=== PATIENT | female | born 1985 | race Caucasian/White ===

== ENCOUNTER → 2021-04-16 13:38 | Outpatient (CLI) | payer OTHER, SELFPAY ==
--- NOTE | 2021-04-16 13:47 | US_ITS ---
INDICATION: ABNORMAL WEIGHT GAIN EXAMINATION: US Pelvis Non OB Complete With Transvaginal Imaging TECHNIQUE: Transabdominal and transvaginal pelvic ultrasound was performed. Grayscale, spectral waveform, and color flow Doppler evaluation of the adnexa. COMPARISON: None. FINDINGS: UTERUS: Anteverted. The uterus measures 7.5 x 4.1 x 3.5 cm. There is no uterine mass. The endometrial stripe measures 2 in AP diameter which is within normal limits. Multiple calcifications seen within the lower uterine segment and cervix. RIGHT OVARY: Measures 4.2 x 1.6 x 2.1 cm. Non-enlarged, normal echogenicity. There are greater than 20 follicles present. There is normal arterial inflow and venous outflow present in the right ovary. LEFT OVARY: Measures 2.8 x 2.2 x 2.9 cm.. Non-enlarged, normal echogenicity. There is normal arterial inflow and venous outflow present in the left ovary. FREE FLUID: None. US/Pelvic (Non ) IMPRESSION: Polycystic ovarian syndrome. Electronically Signed: Pradip Chatterjee MD at 16:54 EDT Tel , Service support ,
--- NOTE | 2021-04-16 13:47 | US_ITS ---
INDICATION: ABNORMAL WEIGHT GAIN EXAMINATION: US Pelvis Non OB Complete With Transvaginal Imaging TECHNIQUE: Transabdominal and transvaginal pelvic ultrasound was performed. Grayscale, spectral waveform, and color flow Doppler evaluation of the adnexa. COMPARISON: None. FINDINGS: UTERUS: Anteverted. The uterus measures 7.5 x 4.1 x 3.5 cm. There is no uterine mass. The endometrial stripe measures 2 in AP diameter which is within normal limits. Multiple calcifications seen within the lower uterine segment and cervix. RIGHT OVARY: Measures 4.2 x 1.6 x 2.1 cm. Non-enlarged, normal echogenicity. There are greater than 20 follicles present. There is normal arterial inflow and venous outflow present in the right ovary. LEFT OVARY: Measures 2.8 x 2.2 x 2.9 cm.. Non-enlarged, normal echogenicity. There is normal arterial inflow and venous outflow present in the left ovary. FREE FLUID: None. US/Transvaginal Non- IMPRESSION: Polycystic ovarian syndrome. Electronically Signed: Pradip Chatterjee MD at 16:54 EDT Tel , Service support ,
== END ==
PROVIDERS: PCP Internal Medicine; Referring Provider Nurse Practitioner; Visit Provider Nurse Practitioner
DX: R63.5 Abnormal weight gain (principal); E28.2 Polycystic ovarian syndrome
CPT/HCPCS: 76830; 76856

== ENCOUNTER 2021-09-11 19:07 | Emergency (ER) | payer OTHER, SELFPAY ==
[2021-09-11 19:08] VITALS: BP 139/98; PULSE 140; RESP 18; TEMP 36.7; O2SAT 100; BMI 28.0
--- NOTE | 2021-09-11 19:40 | EKG12_ITS ---
Test Reason : CP Blood Pressure : / mmHG Vent. Rate : 091 BPM Atrial Rate : 091 BPM P-R Int : 136 ms QRS Dur : 080 ms QT Int : 352 ms P-R-T Axes : 071 056 036 degrees QTc Int : 432 ms Normal sinus rhythm Normal ECG Confirmed by ROS PA, RAJNI ([id number]), medical transcription editor RAZIA GUERRERO ([id number]) on 09/16/2021 6:52:00 AM Referred By: CHRISTIAN Confirmed By:RAJNI SOMMER MD
--- NOTE | 2021-09-11 19:41 | CT_ITS ---
STUDY: CT ABDOMEN AND PELVIS WITH CONTRAST REASON FOR EXAM: Female, 36 years old. Chest pain, back pain, abdominal pain -- TRAUMA ONLY: IV Contrast. RADIATION DOSAGE (If Supplied By Facility): CTDIvol = ( 11.66 ) mGy, DLP = ( 825.28 ) mGycm TECHNIQUE: Transaxial images were obtained from the dome of the diaphragm to the symphysis pubis without oral contrast. IV 100mL Isovue-370 was administered. Sagittal and coronal images were reconstructed. Individualized dose optimization techniques were used for this CT. COMPARISON: None. FINDINGS: The visualized lung bases are unremarkable. The visualized portions of the heart are within normal limits. Normal liver. Normal gallbladder and extrahepatic biliary system. Normal spleen. Normal pancreas. Normal bilateral adrenal glands. Normal right kidney. Normal left kidney. Normal visualized stomach. Normal small intestine. Normal colon. There is non-visualization of the appendix. Normal abdominal aorta. Normal inferior vena cava. Normal retroperitoneum. Normal urinary bladder. Normal visualized uterus. Normal abdominal wall. Normal osseous structures. CT/Abdomen/Pelvis WITH Contrast IMPRESSION: Normal enhanced CT of the abdomen and pelvis. Electronically Signed: Edilberto Godinez MD at 20:36 EDT Tel , Service support ,
--- NOTE | 2021-09-11 19:41 | CT_ITS ---
STUDY: CT CERVICAL SPINE WITHOUT CONTRAST REASON FOR EXAM: Female, 36 years old. Trauma. Fell off a horse. Neck pain. RADIATION DOSAGE (If Supplied By Facility): CTDIvol = ( 18.86 ) mGy, DLP = ( 396.76 ) mGycm TECHNIQUE: High resolution transaxial imaging was performed without contrast material. Sagittal and coronal images were reconstructed. Individualized dose optimization techniques were used for this CT. COMPARISON: None FINDINGS: Normal craniovertebral junction. Normal anterior atlantoaxial articulation. Normal odontoid process. Normal cervical lordosis. Normal vertebral bodies and posterior osseous elements. C2-3: Normal endplates. Normal disc height and morphology. Normal central canal and intervertebral neuroforamina. C3-4: Normal endplates. Normal disc height and morphology. Normal central canal and intervertebral neuroforamina. C4-5: Normal endplates. Normal disc height and morphology. Normal central canal and intervertebral neuroforamina. C5-6: Normal endplates. Normal disc height and morphology. Normal central canal and intervertebral neuroforamina. C6-7: Normal endplates. Normal disc height and morphology. Normal central canal and intervertebral neuroforamina. C7-T1: Normal endplates. Normal disc height and morphology. Normal central canal and intervertebral neuroforamina. Normal visualized soft tissue structures. CT/Spine Cervical without Contras IMPRESSION: Normal unenhanced CT examination of the cervical spine. Note: MRI is more sensitive than CT in detecting cord injury, ligamentous injury and epidural hematoma. If there is continued clinical concern for any of these entities, MRI should be considered. Electronically Signed: Fazal Alcala DO at 20:54 EDT Tel [phone], Service support ,
--- NOTE | 2021-09-11 19:41 | CT_ITS ---
STUDY: CT BRAIN WITHOUT CONTRAST REASON FOR EXAM: Female, 36 years old. Trauma. Fell off a horse. Neck and back pain. RADIATION DOSAGE (If Supplied By Facility): CTDIvol = ( 44.99 ) mGy, DLP = ( 846.73 ) mGycm TECHNIQUE: Transaxial CT imaging of the brain was performed without administration of intravenous contrast material. Individualized dose optimization techniques were used for this CT. COMPARISON: No relevant priors. FINDINGS: Normal soft tissue structures. Normal calvarium. Normal size ventricles and extra-axial spaces for the patient''s age. Normal white matter tracts of the cerebral hemispheres. Normal basal ganglia and thalami. Normal brainstem. Normal cerebellum. There is no intracranial hemorrhage. There are no findings of an acute ischemic infarction. Normal visualized paranasal sinuses. CT/Brain/Head without Contrast IMPRESSION: Normal unenhanced CT scan of the brain. Electronically Signed: Fazal Alcala DO at 20:53 EDT Tel [phone], Service support ,
--- NOTE | 2021-09-11 19:45 | EDS_ITS ---
HPI History of Present Illness Chief Complaint: Fall Narrative Narrative: 36-year-old female presents for evaluation after being bucked from a horse. She states they were moving fairly briskly. She states that the fastest try to the horse continue generally faster than a bicycle can go. Patient states that the horse started bucking and then swung to the side swinging her from the horse onto the ground. To the best of her ability she believes she did on her buttocks and then fell to her back and hit her head. She is unsure if she lost consciousness. She states she was seeing stars. She states that she was told to lay still until EMS arrived. She did not want to go by EMS because she did not want to go to [facility]. She arrives by personal vehicle to the ER. Patient complaining of neck, back, right upper quadrant, right lower rib pain. Patient also admits to right hip pain and right foot pain. Patient states her foot has been hurting her for about a week and a half when she injured it previously. Her other injuries are new. [facility] Medical History GERD (gastroesophageal reflux disease) Irritable bowel disease PCO (polycystic ovaries) Home Medications cetirizine [Zyrtec] 10 mg PO DAILY 09/11/21 [History Last Taken Unknown] cholecalciferol (vitamin D3) [Vitamin D3] 10 mcg PO DAILY 09/11/21 [History Last Taken Unknown] cyclobenzaprine 5 mg PO TID PRN #14 tab 09/11/21 [Rx Last Taken Unknown] multivitamin with iron-mineral [Multi M Vitamin] 1 tab PO DAILY 09/11/21 [History Last Taken Unknown] norgestimate-ethinyl estradiol [Bdm-Zi-Nrvsdhpag] 1 tab PO DAILY 09/11/21 [History Last Taken Unknown] Allergy/AdvReac Type Severity Reaction Status Date / Time Penicillins AdvReac Upset Verified 09/11/21 19:17 Stomach Social History Smoking Status: Never smoker ROS ROS ED Constitutional Constitutional ED: Denies chills or fever(s) Eyes Eyes: Denies blurry vision or change in vision ENT ENT ED: Denies rhinorrhea or sore throat Cardiovascular Cardiovascular: Reports chest pain and racing heartbeat Respiratory/Chest Respiratory/Chest: Denies cough or dyspnea Gastrointestinal Gastrointestinal: Reports abdominal pain; Denies constipation, diarrhea, nausea or vomiting Genitourinary Genitourinary ED: Denies dysuria or hematuria Musculoskeletal Musculoskeletal: Reports back pain and other Details: Right hip pain, right foot pain, neck pain Integumentary Denies abscess or rash Neurologic Neurologic: Reports headache(s) and paresthesias Psychiatric Psychiatric: Denies anxiety EXAM Physical Exam Const Vital Signs: 09/11/21 19:08 09/11/21 19:22 09/11/21 20:27 Temperature 98.0 F Temperature Source Oral Pulse Rate 140 H 89 Respiratory Rate 18 18 Respiratory Effort Normal Blood Pressure 139/98 H Blood Pressure Mean 111 Pulse Ox 100 95 Oxygen Delivery Method Room Air Room Air 09/11/21 20:56 09/11/21 21:28 Temperature Temperature Source Pulse Rate 92 88 Respiratory Rate 20 H 18 Respiratory Effort Blood Pressure 126/89 H 120/81 H Blood Pressure Mean 101 Pulse Ox 95 95 Oxygen Delivery Method Room Air Positive well nourished General Appearance ED: NAD HEENT Reports TM's clear atraumatic Tympanic Membrane ED: Yes TM's clear Eyes PERRL and EOMs intact bilaterally Neck Neck Narrative: Midline cervical spinal tenderness without deformity or step- off. Paraspinal muscular tenderness as well. General: other Chest Wall Chest Narrative: Tenderness to palpation over the right lower chest wall without crepitance or deformity. Resp normal respiratory effort and clear to auscultation bilaterally Cardio regular rhythm Rate: tachycardic GI GI Narrative: Tenderness to palpation in the right upper quadrant. Abdomen is nonperitoneal. Back/Spine Back/Spine Narrative: Right lumbar paraspinal musculature tenderness. No midline spinal deformity or step-off. Extremity Extremity Narrative: Tenderness to palpation of the right hip. Negative logroll. General Extremety ED: Negative for deformity General Extremity: Negative for deformity Neuro oriented x3, CN's II-XII intact bilaterally, moves all extremities, no focal motor deficits and no sensory deficits noted Sensorium / Orientation: alert Motor Exam: strength 5/5 throughout Psych mental status grossly normal and thought process normal Skin no rashes or lesions noted and no wounds MDM MDM MDM Narrative Medical decision making narrative: Patient presenting after falling off a horse. She is complaining of head, neck, chest, abdominal pain and right hip pain as well as right foot pain. Given that she fell at high-speed and landed on her back I did treat her as a trauma and ordered blood work as well as imaging. Patient CBC, CMP, are normal. Troponin is negative. EKG on my interpretation shows normal sinus rhythm ventricular rate of 91 bpm without sign of ischemic change. hCG negative. EtOH negative. Patient declined any analgesia while awaiting her work-up because she states she is sensitive to medicine. Patient CT of the brain, cervical spine, chest, abdomen pelvis are all negative for acute findings as interpreted by the radiologist and reviewed by myself. Patient was cleared from his c-collar. X-ray of the right foot interpretation shows no acute fracture or subluxation and the radiologist does agree. Patient requested a muscle relaxer at this time and was given cyclobenzaprine 5 mg due to her sensitivity. Her mother is here and will drive her home. She is counseled she would likely be sore for the next day or 2. She is given return precautions. Impression: 1. Fall from horse 2. Closed head injury 3. Cervical strain 4. Chest wall contusion 5. Abdominal pain unknown cause 6. Right rib contusion 7. Right foot contusion Lab Data Labs: Laboratory Results - last 24 hr 09/11/21 09/11/21 09/11/21 19:35 19:47 19:47 WBC 7.9 RBC 4.59 Hgb 13.9 Hct 41.2 MCV 89.8 MCH 30.3 MCHC 33.7 RDW Std Deviation 42.6 RDW Coeff of Katarzyna 13.0 Plt Count 288 MPV 10.8 Immature Gran % (Auto) 0.400 Neut % (Auto) 66.2 Lymph % (Auto) 25.4 Ransom % (Auto) 7.1 Eos % (Auto) 0.4 Baso % (Auto) 0.5 Absolute Neuts (auto) 5.3 Absolute Lymphs (auto) 2.01 Nucleated RBC % 0 Sodium 139 Potassium 3.7 Chloride 106 Carbon Dioxide 24.0 Anion Gap 9 BUN 16 Creatinine 0.96 Estim Creat Clear Calc 72.20 Est GFR (MDRD) Af Amer 84 Est GFR (MDRD) Non-Af 70 BUN/Creatinine Ratio 16.7 Glucose 110 H Calcium 9.4 Total Bilirubin 0.20 Direct Bilirubin 0.07 AST 26 ALT 27 Alkaline Phosphatase 75 Troponin I High Sens 5 Total Protein 8.6 H Albumin 3.9 Globulin 4.7 H Serum , Qual Urine Color Yellow Urine Clarity Clear Urine pH 7.0 Ur Specific [place] 1.005 Urine Protein Negative Urine Glucose (UA) Normal Urine Ketones Negative Urine Occult Blood 50 H Urine Nitrite Negative Urine Bilirubin Negative Urine Urobilinogen Normal Ur Leukocyte Esterase Negative Urine RBC 0 SEEN Urine WBC 0 SEEN Ur Squamous Epith Cells 0 SEEN Urine Bacteria 0 SEEN Urine Mucus 0 SEEN Ethyl Alcohol 09/11/21 09/11/21 19:47 19:47 WBC RBC Hgb Hct MCV MCH MCHC RDW Std Deviation RDW Coeff of Katarzyna Plt Count MPV Immature Gran % (Auto) Neut % (Auto) Lymph % (Auto) [place]ansom % (Auto) Eos % (Auto) Baso % (Auto) Absolute Neuts (auto) Absolute Lymphs (auto) Nucleated RBC % Sodium Potassium Chloride Carbon Dioxide Anion Gap BUN Creatinine Estim Creat Clear Calc Est GFR (MDRD) Af Amer Est GFR (MDRD) Non-Af BUN/Creatinine Ratio Glucose Calcium Total Bilirubin Direct Bilirubin AST ALT Alkaline Phosphatase Troponin I High Sens Total Protein Albumin Globulin Serum , Qual NEGATIVE Urine Color Urine Clarity Urine pH Ur Specific [place] Urine Protein Urine Glucose (UA) Urine Ketones Urine Occult Blood Urine Nitrite Urine Bilirubin Urine Urobilinogen Ur Leukocyte Esterase Urine RBC Urine WBC Ur Squamous Epith Cells Urine Bacteria Urine Mucus Ethyl Alcohol < 3.0 Radiography Diagnostic Testing: Clinical Impression(s) from Imaging Studies Abdomen/Pelvis CT 09/11/21 19:41 IMPRESSION: Normal enhanced CT of the abdomen and pelvis. Electronically Signed: Edilberto Godinez MD at 20:36 EDT Tel , Service support , Brain CT 09/11/21 19:41 IMPRESSION: Normal unenhanced CT scan of the brain. Electronically Signed: Fazal Alcala DO at 20:53 EDT Tel [phone], Service support , Cervical Spine CT 09/11/21 19:41 IMPRESSION: Normal unenhanced CT examination of the cervical spine. Note: MRI is more sensitive than CT in detecting cord injury, ligamentous injury and epidural hematoma. If there is continued clinical concern for any of these entities, MRI should be considered. Electronically Signed: Fazal Alcala DO at 20:54 EDT Tel [phone], Service support , Chest CT 09/11/21 20:07 IMPRESSION: Normal unenhanced CT Chest examination. Electronically Signed: Fazal Alcala DO at 20:55 EDT Tel [phone], Service support , Foot X-Ray 09/11/21 20:18 IMPRESSION: Normal x-ray examination of the foot. Electronically Signed: Fazal Alcala DO at 20:56 EDT Tel [phone], Service support , Discharge Plan Triage Chief Complaint: Fall ED Provider: Rubens Andrews Dx/Rx/DC Orders Instructions: ED Back Sprain/Strain, ED Chest Wall Contusion, ED Head Injury (Adult), ED Neck Sprain or Strain, ED Foot Contusion (Child) Prescriptions: New cyclobenzaprine 5 mg tablet 5 mg PO TID PRN (Reason: muscle spasm) Qty: 14 RF: 0 No Action Multi M Vitamin Tablet 1 tab PO DAILY RF: 0 cholecalciferol (vitamin D3) [Vitamin D3] 10 mcg (400 unit) Capsule 10 mcg PO DAILY RF: 0 norgestimate-ethinyl estradiol [[id number]-Ihwtqoanx] 0.18/0.215/0.25 mg-25 mcg Tablet 1 tab PO DAILY RF: 0 Zyrtec 10 mg Capsule 10 mg PO DAILY RF: 0 Primary Care Provider: Amelia Hawkins Referrals: Amelia Hawkins DO [Primary Care Provider] - Disposition Disposition: Home, Self Care Discharge Date/Time: 09/11/21 21:29
[2021-09-11 20:00] LABS: Absolute Lymphocyte Count 2.01 X10^3/uL (0.83-4.51); Absolute Neutrophil Count 5.3 X10^3/uL (2.0-7.7); Basophil# 0.04 X10^3/uL; Basophil% 0.5 % (0-1); Eosinophil# 0.03 X10^3/uL; Eosinophils% 0.4 % (0-5); Hematocrit 41.2 % (37-47); Hemoglobin 13.9 g/dL (12.0-15.0); Lymphocyte # 2.01 X10^3/ul (0.83-4.51); Lymphocyte % 25.4 % (19-41); Mean Corp Hgb Conc 33.7 g/dL (32-36); Mean Corpuscular Hgb 30.3 pg (27.0-32.0); Mean Corpuscular Volume 89.8 fL (81-99); Mean Platelet Vol. 10.8 fl (6.2-12.0); Monocyte# 0.56 X10^3/uL; Monocyte% 7.1 % (0-10); NRBC Flagged by Analyzer 0 % (0-5); Neutrophil # 5.25 X10^3/uL (2.7-7.7); Neutrophil % 66.2 % (47-70); Platelet Count 288 K/mm3 (150-450); RBC Distribution Width SD 42.6 fl (35.1-43.9); Red Blood Count 4.59 M/mm3 (4.2-5.4); White Blood Count 7.9 K/mm3 (4.4-11.0)
[2021-09-11 20:02] LABS: Bacteria 0 SEEN /hpf (None Seen); Mucous, Urine 0 SEEN /hpf (<or=2+); Red Blood Cells-Urine 0 SEEN /hpf (0-5); Squamous Epithelial Cells - UA 0 SEEN /hpf (5-10); White Blood Cells 0 SEEN /hpf (0-5)
[2021-09-11 20:03] LABS: Color, Urine Yellow (Yellow); Glucose, Dipstick Normal (Normal); Ketone-Dipstick Negative (Negative); Leukocyte Esterase-Dipstick Negative /ul (Negative); Nitrite-Dipstick Negative (Negative); Occult Blood-Urine 50 /ul (Negative); Protein-Dipstick Negative (Negative); Specific Gravity, Urine 1.005 (1.002-1.030); Urine Bilirubin Dipstick Negative (Negative); Urine Clarity Clear (Clear); Urine Urobilinogen Normal (Normal)
--- NOTE | 2021-09-11 20:07 | CT_ITS ---
STUDY: CT CHEST WITHOUT CONTRAST REASON FOR EXAM: Female, 36 years old. Fell off horse. Upper abdominal and back pain. RADIATION DOSAGE (If Supplied By Facility): CTDIvol = ( 10.47 ) mGy, DLP = ( 374.10 ) mGycm TECHNIQUE: Transaxial imaging was performed without the administration of intravenous contrast material. Individualized dose optimization techniques were used for this CT. COMPARISON: None. FINDINGS: The lungs are normal. There is no demonstrated pleural abnormality. Normal heart and pericardium. Normal mediastinum. Normal hilar regions. Normal unenhanced pulmonary arteries. Normal aorta arch and descending thoracic aorta. Normal osseous structures. There is no demonstrated abnormality of the visualized upper abdomen. CT/Chest without Contrast IMPRESSION: Normal unenhanced CT Chest examination. Electronically Signed: Fazal Alcala DO at 20:55 EDT Tel [phone], Service support ,
[2021-09-11 20:09] LABS: Internal QC Validated? YES +Cl - CLEAR BKGD; Pregnancy, Serum, hCG Quali. NEGATIVE Negative
[2021-09-11 20:14] LABS: Alcohol, Blood (Medical)-Serum < 3.0 mg/dL
--- NOTE | 2021-09-11 20:18 | RAD_ITS ---
STUDY: X-RAY - RIGHT FOOT CLINICAL: Female, 36 years old. Fell off a horse. Pain at the base of the fifth metatarsal. Had pain in the fifth toe weeks ago after being stepped on by horse. TECHNIQUE: view(s) of the foot. COMPARISON: None. FINDINGS: Normal talus, calcaneus, and tarsal bones. Normal visualized subtalar, talonavicular, calcaneocuboid, tarsal and tarsometatarsal articulations. Normal metatarsi. Normal metatarsophalangeal joint of the great toe. Normal tibial and fibular sesamoid bones. Normal interphalangeal joint of the great toe. Normal phalanges of the great toe. Normal second through fifth metatarsophalangeal joints. Normal interphalangeal joints and phalanges of the lesser toes. The soft tissue structures are unremarkable. RAD/Foot min 3 Views IMPRESSION: Normal x-ray examination of the foot. Electronically Signed: Fazal Alcala DO at 20:56 EDT Tel [phone], Service support ,
[2021-09-11 20:19] LABS: AST(SGOT) 26 U/L (15-37); Alanine Aminotransfer ALT/SGPT 27 U/L (13-56); Albumin, Serum 3.9 g/dL (3.2-5.0); Alkaline Phosphatase 75 U/L (45-117); Anion Gap 9 (5-15); BUN 16 mg/dL (7-18); BUN/Creat Ratio 16.7 RATIO (10-20); Bilirubin, Direct 0.07 mg/dL (0.00-0.30); Calcium,Total 9.4 mg/dL (8.5-10.1); Chloride 106 mmol/L (98-107); Creatinine, Serum 0.96 mg/dL (0.55-1.02); EST Glomerular Filtration Rate 70 mL/min (>60); Est Glom Filt Rate - Afr Amer 84 mL/min (>60); Globulin 4.7 g/dL (2.2-4.2); Glucose 110 mg/dL (74-106); Potassium 3.7 mmol/L (3.5-5.1); Protein, Total 8.6 g/dL (6.4-8.2); Sodium Level 139 mmol/L (136-145); Troponin-I HS 5 pg/mL (3.0-54.0)
[2021-09-11 20:27] VITALS: PULSE 89; RESP 18; O2SAT 95
[2021-09-11 20:56] VITALS: BP 126/89; PULSE 92; RESP 20; O2SAT 95
[2021-09-11] MEDS: cycloBENZAPRine HCl 5 MG TABLET PO (21:16)
[2021-09-11 21:28] VITALS: BP 120/81; PULSE 88; RESP 18; O2SAT 95
== END 2021-09-11 21:29 | disposition home or self-care (01) ==
PROVIDERS: Emergency Provider Student in an Organized Health Care Education/Training Program; PCP Internal Medicine
DX: S09.90XA Unspecified injury of head, initial encounter (principal); S16.1XXA Strain of muscle, fascia and tendon at neck level, initial encounter; S20.211A Contusion of right front wall of thorax, initial encounter; S90.31XA Contusion of right foot, initial encounter; M25.551 Pain in right hip; V80.010A Animal-rider injured by fall from or being thrown from horse in noncollision accident, initial encounter; Y93.52 Activity, horseback riding; Y92.9 Unspecified place or not applicable; Y99.9 Unspecified external cause status; K58.9 Irritable bowel syndrome, unspecified; E28.2 Polycystic ovarian syndrome; K21.9 Gastro-esophageal reflux disease without esophagitis; Z79.899 Other long term (current) drug therapy
CPT/HCPCS: 70450; 71250; 72125; 73630; 74177; 80048; 80076; 81001; 82077; 84484; 84703; 85025; 93005; 99284; Q9967; A4216

== ENCOUNTER 2022-11-25 05:21 | Emergency (ER) | payer OTHER, SELFPAY ==
[2022-11-25] VITALS (9 sets, daily range): BP systolic 128–152; BP diastolic 72–86; PULSE 73–97; RESP 16–20; TEMP 36.5; O2SAT 97–100; BMI 24.1; BMI 25.4
--- NOTE | 2022-11-25 05:37 | CT_ITS ---
EXAM: CT HEAD WITHOUT INTRAVENOUS CONTRAST CLINICAL INDICATION: Neuro deficit, acute, stroke suspected Neuro deficit, acute, stroke suspected TECHNIQUE: Multiple axial images were obtained of the head without intravenous contrast. This CT exam was performed using one or more of the following dose reduction techniques: automated exposure control, adjustment of the mA and/or kV according to patient size, and/or use of iterative reconstruction technique. This report was created using [employer] report generation technology. COMPARISON: 09/11/2021. FINDINGS: BRAIN AND EXTRA-AXIAL SPACES: Unremarkable. No intra- or extra-axial hemorrhage. No evidence of acute infarct. No intracranial mass or mass effect. There is preservation of the gutierrez/white matter interface. Posterior fossa structures are unremarkable. Ventricles are appropriate for age. No hydrocephalus. Basal cisterns are patent. BONES/JOINTS: Unremarkable. No discrete lytic or blastic abnormalities. SINUSES: There is a polyp or retention cyst in the right maxillary sinus. There is no evidence for acute sinusitis. MASTOID AIR CELLS: Unremarkable. Clear. ORBITS: Visualized globes, extraocular muscles, optic nerves and retrobulbar fat appear unremarkable. ASPECTS score: 10. CT/STROKE Brain/Head without Cont IMPRESSION: No acute findings in the head/brain. N.B. : The above Results were Read Back by Bobby Hernandez MD to Dr. Frieda Camacho MD, and understanding confirmed on 11/25/2022 05:59:02 (ET). Electronically Signed: Bobby Hernandez MD at 5:57 EST Reading Location ID and State: [facility] / [place] , Service support ,
--- NOTE | 2022-11-25 05:38 | ED.VIS.STROK ---
HPI <Dr. Frieda Camacho MD - Last Filed: 11/25/22 07:22> History of Present Illness Chief Complaint: Neuro S/Sx Detail of Chief Complaint: Left facial paresthesia Informant: patient Onset/Context/Timing Onset: Today Narrative Narrative: Patient presents secondary to left facial paresthesias. She states she felt normal when she went to bed at 1230 this morning. She woke up at 315 with left-sided facial numbness. She states it is worse below her left lower lip. She has not had any difficulty speaking. [facility] <Dr. Frieda Camacho MD - Last Filed: 11/25/22 07:22> [facility] Medical History GERD (gastroesophageal reflux disease) Irritable bowel disease PCO (polycystic ovaries) Home Medications cetirizine 10 mg capsule (Zyrtec) 10 mg PO DAILY 09/11/21 [History Last Taken Unknown] cholecalciferol (vitamin D3) 10 mcg (400 unit) capsule (Vitamin D3) 10 mcg PO DAILY 09/11/21 [History Last Taken Unknown] cyclobenzaprine 5 mg tablet 5 mg PO TID PRN muscle spasm #14 tabs 09/11/21 [Rx Last Taken Unknown] multivitamin with iron-mineral 1 tab PO DAILY 09/11/21 [History Last Taken Unknown] norgestimate 0.18 mg/0.215 mg/0.25 mg-ethinyl estradiol 25 mcg tablet ([id number]) 1 tab PO DAILY 09/11/21 [History Last Taken Unknown] Allergy/AdvReac Type Severity Reaction Status Date / Time Gadolinium-MRI Contrast Allergy Hives Verified 11/25/22 09:49 Medium Penicillins AdvReac Upset Verified 09/11/21 19:17 Stomach prednisolone AdvReac Other Verified 11/25/22 05:28 Social History Smoking Status: Never smoker ROS <Dr. Frieda Camacho MD - Last Filed: 11/25/22 07:22> ROS ED Constitutional Constitutional ED: Denies chills or fever(s) Eyes Eyes: Denies change in vision or discharge from eye(s) ENT ENT ED: Denies discharge from eye(s), rhinorrhea or sore throat Cardiovascular Cardiovascular: Denies chest pain or palpitations Respiratory/Chest Respiratory/Chest: Denies cough or dyspnea Gastrointestinal Gastrointestinal: Denies abdominal pain, diarrhea, nausea or vomiting Genitourinary Genitourinary ED: Denies dysuria Musculoskeletal Musculoskeletal: Denies back pain or extremity pain Integumentary Denies Abrasions or rash Neurologic Neurologic: Reports paresthesias; Denies headache(s) or weakness Psychiatric Psychiatric: Denies anxiety or depression Allergic/Immunologic Allergic/Immunologic ED: Denies lip swelling or urticaria EXAM <Dr. Frieda Camacho MD - Last Filed: 11/25/22 07:22> Physical Exam Const Vital Signs: 11/25/22 05:22 11/25/22 05:34 11/25/22 05:37 Temperature 97.7 F L 97.7 F L Temperature Source Oral Temporal Pulse Rate 97 97 Respiratory Rate 18 18 Blood Pressure 146/86 H 146/86 H Blood Pressure Mean 106 106 Pulse Ox 99 99 99 Oxygen Delivery Method Room Air Room Air Room Air 11/25/22 06:22 11/25/22 06:30 11/25/22 07:00 Temperature Temperature Source Pulse Rate 90 86 86 Respiratory Rate 18 18 Blood Pressure 134/85 H 129/85 H Blood Pressure Mean 101 99 Pulse Ox 98 99 100 Oxygen Delivery Method Room Air Room Air 11/25/22 09:38 11/25/22 09:55 Temperature Temperature Source Pulse Rate 85 Respiratory Rate 20 H 18 Blood Pressure 152/78 H 131/72 H Blood Pressure Mean 102 91 Pulse Ox 97 100 Oxygen Delivery Method Room Air Room Air Positive well nourished and well developed General Appearance ED: well developed HEENT Reports normocephalic and head/scalp atraumatic Eyes PERRL and EOMs intact bilaterally Neck supple Chest Wall inspection of chest normal and palpation of chest normal Resp normal respiratory effort and clear to auscultation bilaterally Cardio regular rate and regular rhythm GI normal to inspection, nondistended, normoactive bowel sounds Palpation: soft Extremity normal to inspection Neuro oriented x3 Sensorium / Orientation: alert Motor Exam: strength 5/5 throughout Psych mental status grossly normal Skin no rashes or lesions noted NIHSS NIHSS Initial: 1a Level of Consciousness: 0 1b LOC Questions (Score 2 if aphasic/stupor): 0 1c LOC Commands (Only score 1st attempt): 0 2 Best Gaze (If aphasic, use reflexive mvmts.): 0 3 Visual: 0 4 Facial Palsy: 0 5 Motor Arm Right (UN = amputation/fusion): 0 5 Motor Arm Left: 0 6 Motor Leg Right: 0 6 Motor Leg Left: 0 7 Limb ataxia (Only + if out of proportion): 0 8 Sensory (Aphasia/stupor=0 or 1, coma=2): 1 9 Best Language: 0 10 Dysarthria (mute, coma=2, intubated=UN): 0 11 Extinction and Inattention (only scored if +): 0 Total Score: 1 <Dr. Naveed Hernandez MD - Last Filed: 11/25/22 11:51> Physical Exam Const Vital Signs: 11/25/22 05:22 11/25/22 05:34 11/25/22 05:37 Temperature 97.7 F L 97.7 F L Temperature Source Oral Temporal Pulse Rate 97 97 Respiratory Rate 18 18 Blood Pressure 146/86 H 146/86 H Blood Pressure Mean 106 106 Pulse Ox 99 99 99 Oxygen Delivery Method Room Air Room Air Room Air 11/25/22 06:22 11/25/22 06:30 11/25/22 07:00 Temperature Temperature Source Pulse Rate 90 86 86 Respiratory Rate 18 18 Blood Pressure 134/85 H 129/85 H Blood Pressure Mean 101 99 Pulse Ox 98 99 100 Oxygen Delivery Method Room Air Room Air 11/25/22 09:38 11/25/22 09:55 Temperature Temperature Source Pulse Rate 85 Respiratory Rate 20 H 18 Blood Pressure 152/78 H 131/72 H Blood Pressure Mean 102 91 Pulse Ox 97 100 Oxygen Delivery Method Room Air Room Air NIHSS NIHSS Initial: Total Score: 1 MDM <Dr. Frieda Camacho MD - Last Filed: 11/25/22 07:22> MDM MDM Narrative Medical decision making narrative: Patient was made stroke alert on arrival. Patient sent immediately for CT and CTA of the head and neck. Lab work obtained. Lab Data Attestation: I reviewed the patient's lab results. Labs: Laboratory Results - last 24 hr 11/25/22 11/25/22 11/25/22 05:39 05:40 05:40 WBC 6.1 RBC 4.23 Hgb 13.2 Hct 38.8 MCV 91.7 MCH 31.2 MCHC 34.0 RDW Std Deviation 45.1 H RDW Coeff of Katarzyna 13.2 Plt Count 226 MPV 10.8 Immature Gran % (Auto) 0.200 Neut % (Auto) 49.6 Lymph % (Auto) 41.2 H Callaway % (Auto) 7.7 Eos % (Auto) 1.0 Baso % (Auto) 0.3 Absolute Neuts (auto) 3.0 Absolute Lymphs (auto) 2.51 Nucleated RBC % 0 PT INR APTT Sodium Potassium Chloride Carbon Dioxide Anion Gap BUN Creatinine Estim Creat Clear Calc Est GFR (MDRD) Af Amer Est GFR (MDRD) Non-Af BUN/Creatinine Ratio Glucose Calcium Troponin I High Sens Serum , Qual NEGATIVE POC Glucose 95 11/25/22 11/25/22 05:40 05:40 WBC RBC Hgb Hct MCV MCH MCHC RDW Std Deviation RDW Coeff of Katarzyna Plt Count MPV Immature Gran % (Auto) Neut % (Auto) Lymph % (Auto) Callaway % (Auto) Eos % (Auto) Baso % (Auto) Absolute Neuts (auto) Absolute Lymphs (auto) Nucleated RBC % PT 12.9 INR 1.0 APTT 27.2 Sodium 138 Potassium 3.8 Chloride 105 Carbon Dioxide 26.0 Anion Gap 7 BUN 14 Creatinine 0.79 Estim Creat Clear Calc 83.38 Est GFR (MDRD) Af Amer 105 Est GFR (MDRD) Non-Af 87 BUN/Creatinine Ratio 17.8 Glucose 106 Calcium 9.0 Troponin I High Sens 3 Serum , Qual POC Glucose Radiography Diagnostic Testing: Clinical Impression(s) from Imaging Studies Brain CT 11/25/22 05:37 IMPRESSION: No acute findings in the head/brain. N.B. : The above Results were Read Back by Bobby Hernandez MD to Dr. Frieda Camacho MD, and understanding confirmed on 11/25/2022 05:59:02 (ET). Electronically Signed: Bobby Hernandez MD at 5:57 EST , ADDENDUM: 11/25/22 0605 IMPRESSION: No acute findings in the head/brain. N.B. : The above Results were Read Back by Bobby Hernandez MD to Dr. Frieda Camacho MD, and understanding confirmed on 11/25/2022 05:59:02 (ET). Electronically Signed: Bobby Hernandez MD at 5:57 EST , Head/Neck CTA 11/25/22 05:46 IMPRESSION: Negative CTA carotid and CTA brain. Electronically Signed: Bobby Hernandez MD at 6:20 EST , Brain MRI 11/25/22 06:21 IMPRESSION: 1. Negative unenhanced and enhanced MRI of the brain. Electronically Signed: Kam Coto MD at 10:44 EST , Chest X-Ray 11/25/22 07:15 IMPRESSION: No radiographic evidence of acute cardiopulmonary disease. Electronically Signed: Bobby Hernandez MD at 7:49 EST , EKG Initial EKG: Attestation: I personally reviewed and interpreted this EKG as follows: Interpretation: Sinus Rhythm (Sinus at 87 with no acute ischemia) Treatment and Re-Evaluation Narrative: Lab work is unremarkable. Chest x-ray per my interpretation reveals no focal infiltrate. No acute abnormality. CT and CTA of the head and neck reveal no acute findings. Patient was evaluated by neurology with [facility]. They did recommend either admission for full stroke work-up or MRI from the ER. Given the high hospital census I am attempting to obtain an MRI from the emergency room. If this is negative patient we discharged home. Patient be signed out to oncoming physician awaiting MRI results. <Dr. Naveed Hernandez MD - Last Filed: 11/25/22 11:51> [facility] Lab Data Labs: Laboratory Results - last 24 hr 11/25/22 11/25/22 11/25/22 05:39 05:40 05:40 WBC 6.1 RBC 4.23 Hgb 13.2 Hct 38.8 MCV 91.7 MCH 31.2 MCHC 34.0 RDW Std Deviation 45.1 H RDW Coeff of Katarzyna 13.2 Plt Count 226 MPV 10.8 Immature Gran % (Auto) 0.200 Neut % (Auto) 49.6 Lymph % (Auto) 41.2 H Callaway % (Auto) 7.7 Eos % (Auto) 1.0 Baso % (Auto) 0.3 Absolute Neuts (auto) 3.0 Absolute Lymphs (auto) 2.51 Nucleated RBC % 0 PT INR APTT Sodium Potassium Chloride Carbon Dioxide Anion Gap BUN Creatinine Estim Creat Clear Calc Est GFR (MDRD) Af Amer Est GFR (MDRD) Non-Af BUN/Creatinine Ratio Glucose Calcium Troponin I High Sens Serum , Qual NEGATIVE POC Glucose 95 11/25/22 11/25/22 05:40 05:40 WBC RBC Hgb Hct MCV MCH MCHC RDW Std Deviation RDW Coeff of Katarzyna Plt Count MPV Immature Gran % (Auto) Neut % (Auto) Lymph % (Auto) Callaway % (Auto) Eos % (Auto) Baso % (Auto) Absolute Neuts (auto) Absolute Lymphs (auto) Nucleated RBC % PT 12.9 INR 1.0 APTT 27.2 Sodium 138 Potassium 3.8 Chloride 105 Carbon Dioxide 26.0 Anion Gap 7 BUN 14 Creatinine 0.79 Estim Creat Clear Calc 83.38 Est GFR (MDRD) Af Amer 105 Est GFR (MDRD) Non-Af 87 BUN/Creatinine Ratio 17.8 Glucose 106 Calcium 9.0 Troponin I High Sens 3 Serum , Qual POC Glucose Radiography Diagnostic Testing: Clinical Impression(s) from Imaging Studies Brain CT 11/25/22 05:37 IMPRESSION: No acute findings in the head/brain. N.B. : The above Results were Read Back by Bobby Hernandez MD to Dr. Frieda Camacho MD, and understanding confirmed on 11/25/2022 05:59:02 (ET). Electronically Signed: Bobby Hernandez MD at 5:57 EST , ADDENDUM: 11/25/22 0605 IMPRESSION: No acute findings in the head/brain. N.B. : The above Results were Read Back by Bobby Hernandez MD to Dr. Frieda Camacho MD, and understanding confirmed on 11/25/2022 05:59:02 (ET). Electronically Signed: Bobby Hernandez MD at 5:57 EST , Head/Neck CTA 11/25/22 05:46 IMPRESSION: Negative CTA carotid and CTA brain. Electronically Signed: Bobby Hernandez MD at 6:20 EST , Brain MRI 11/25/22 06:21 IMPRESSION: 1. Negative unenhanced and enhanced MRI of the brain. Electronically Signed: Kam Coto MD at 10:44 EST Reading Location ID and State: [facility] / [place] , Service support , Chest X-Ray 11/25/22 07:15 IMPRESSION: No radiographic evidence of acute cardiopulmonary disease. Electronically Signed: Bobby Hernandez MD at 7:49 EST , Treatment and Re-Evaluation Narrative: Lab work is unremarkable. Chest x-ray per my interpretation reveals no focal infiltrate. No acute abnormality. CT and CTA of the head and neck reveal no acute findings. Patient was evaluated by neurology with [facility]. They did recommend either admission for full stroke work-up or MRI from the ER. Given the high hospital census I am attempting to obtain an MRI from the emergency room. If this is negative patient we discharged home. Patient be signed out to oncoming physician awaiting MRI results. Mary: I took over care of this patient. She ended up having an MRI without contrast and the tech was suspicious that there might be something abnormal so they asked if gadolinium could be added which was done, an enhanced MRIs are both negative/normal according to the radiology report which I reviewed. In addition, her chest x-ray report is normal, her EKG is normal as interpreted by myself, her labs are normal, her CT and CT angiography are normal. She still has some numbness. She did have some scratchy throat and a rash from the gadolinium, not from the CT dye, she was given Benadryl 25 mg and observed and it resolved and she had no other symptoms or recurrence of those symptoms. We are adding gadolinium to her allergy list. She declined an offer for other medications for her symptoms, she does have a history of migraines but has not had a headache with the symptoms since this morning, but I suspect this may be migraine-related. She will be discharged home to rest and follow-up with neurology if she continues to have issues she is comfortable with that plan. Stroke Documentation Questions Stroke Team Activated: Yes Was Patient considered for Endovascular Intervention?: No-CTA negative, determined not to be an endovascular candidate IV Alteplase (t-PA) Administered: No (non-disabling sx) Discharge Plan Triage Chief Complaint: Neuro S/Sx ED Provider: Frieda Camacho Dx/Rx/DC Orders Clinical Impression: Paresthesias, Hx of migraine headaches Instructions: ED Paraesthesias Prescriptions: No Action Multi M Vitamin Tablet 1 tab PO DAILY cholecalciferol (vitamin D3) [Vitamin D3] 10 mcg (400 unit) Capsule 10 mcg PO DAILY norgestimate-ethinyl estradiol [Iql-Tq-Pskggjfcv] 0.18/0.215/0.25 mg-25 mcg Tablet 1 tab PO DAILY Zyrtec 10 mg Capsule 10 mg PO DAILY cyclobenzaprine 5 mg tablet 5 mg PO TID PRN (Reason: muscle spasm) Qty: 14 0RF Primary Care Provider: Amelia Hawkins Referrals: Amelia Hawkins DO [Primary Care Provider] - 3-5 Days if not improving Scooby Gray MD [Non-Staff -Ordering Privileges] - 1 Week if not improving Disposition Disposition: Home, Self Care
--- NOTE | 2022-11-25 05:46 | CT_ITS ---
EXAM: CT ANGIOGRAPHY HEAD AND NECK WITH INTRAVENOUS CONTRAST CLINICAL INDICATION: paresthesias paresthesias TECHNIQUE: [place] [facility] [place] [facility]/head and neck CT angiography protocol performed with intravenous contrast. This CT exam was performed using one or more of the following dose reduction techniques: automated exposure control, adjustment of the mA and/or kV according to patient size, and/or use of iterative reconstruction technique. This report was created using [employer] report generation technology. MIP reconstructed images were created and reviewed. CONTRAST: IV 100mL Isovue-370 RADIATION DOSE: CTDIvol = 19.11 mGy, DLP = 640.19 mGy-cm COMPARISON: Noncontrast CT scan of brain done today. FINDINGS: HEAD: RIGHT ANTERIOR CEREBRAL ARTERY: Unremarkable. No significant stenosis at the visualized segments. Anterior communicating artery is present. No aneurysm. RIGHT MIDDLE CEREBRAL ARTERY: Unremarkable. No significant stenosis at the visualized segments. No aneurysm. RIGHT POSTERIOR CEREBRAL ARTERY: Unremarkable. No occlusion or significant stenosis. No aneurysm. RIGHT INTRACRANIAL INTERNAL CAROTID ARTERY: Unremarkable. No significant stenosis. No dissection or occlusion. RIGHT INTRACRANIAL VERTEBRAL ARTERY: Unremarkable. No significant stenosis. No dissection or occlusion. LEFT ANTERIOR CEREBRAL ARTERY: Unremarkable. No significant stenosis at the visualized segments. No aneurysm. LEFT MIDDLE CEREBRAL ARTERY: Unremarkable. No significant stenosis at the visualized segments. No aneurysm. LEFT POSTERIOR CEREBRAL ARTERY: Unremarkable. No occlusion or significant stenosis. No aneurysm. LEFT INTRACRANIAL INTERNAL CAROTID ARTERY: Unremarkable. No significant stenosis. No dissection or occlusion. LEFT INTRACRANIAL VERTEBRAL ARTERY: Unremarkable. No significant stenosis. No dissection or occlusion. BASILAR ARTERY: Unremarkable. No significant stenosis. No aneurysm. OTHER VASCULATURE: No vascular malformation. NECK: RIGHT COMMON CAROTID ARTERY: Unremarkable. No significant stenosis. No dissection or occlusion. RIGHT EXTRACRANIAL INTERNAL CAROTID ARTERY: Unremarkable. No significant stenosis. No dissection or occlusion. RIGHT EXTERNAL CAROTID ARTERY: Unremarkable. No occlusion. RIGHT EXTRACRANIAL VERTEBRAL ARTERY: Unremarkable. No significant stenosis. No dissection or occlusion. LEFT COMMON CAROTID ARTERY: Unremarkable. No significant stenosis. No dissection or occlusion. LEFT EXTRACRANIAL INTERNAL CAROTID ARTERY: Unremarkable. No significant stenosis. No dissection or occlusion. LEFT EXTERNAL CAROTID ARTERY: Unremarkable. No occlusion. LEFT EXTRACRANIAL VERTEBRAL ARTERY: Unremarkable. No significant stenosis. No dissection or occlusion. GREAT VESSELS OF AORTIC ARCH: Unremarkable as visualized. Normal anatomy, patent. LUNG APICES: Unremarkable as visualized. HEAD and NECK: BONES/JOINTS: Unremarkable. No discrete lytic or blastic abnormalities. SOFT TISSUES: Unremarkable. CAROTID STENOSIS REFERENCE USING NASCET CRITERIA: % ICA stenosis = (1 - narrowest ICA diameter/diameter of distal cervical ICA) x 100. Mild - <50% stenosis. Moderate - 50-69% stenosis. Severe - 70-94% stenosis. Near occlusion - 95-99% stenosis. Occluded - 100% stenosis. CT/CTA Head AND Neck W/ Contrast IMPRESSION: Negative CTA carotid and CTA brain. Electronically Signed: Bobby Hernandez MD at 6:20 EST ,
[2022-11-25 05:50] LABS: Absolute Lymphocyte Count 2.51 X10^3/uL (0.83-4.51); Basophil# 0.02 X10^3/uL; Basophil% 0.3 % (0-1); Eosinophil# 0.06 X10^3/uL; Hematocrit 38.8 % (37-47); Hemoglobin 13.2 g/dL (12.0-15.0); Lymphocyte # 2.51 X10^3/ul (0.83-4.51); Lymphocyte % 41.2 % (19-41); Mean Corpuscular Hgb 31.2 pg (27.0-32.0); Mean Corpuscular Volume 91.7 fL (81-99); Mean Platelet Vol. 10.8 fl (6.2-12.0); Monocyte# 0.47 X10^3/uL; Monocyte% 7.7 % (0-10); NRBC Flagged by Analyzer 0 % (0-5); Neutrophil # 3.02 X10^3/uL (2.7-7.7); Neutrophil % 49.6 % (47-70); Platelet Count 226 K/mm3 (150-450); RBC Distribution Width CV 13.2 % (11.6-14.6); RBC Distribution Width SD 45.1 fl (35.1-43.9); Red Blood Count 4.23 M/mm3 (4.2-5.4); White Blood Count 6.1 K/mm3 (4.4-11.0)
[2022-11-25 05:59] LABS: Prothrombin Time (Protime)PT. 12.9 SECONDS (11.7-14.9)
[2022-11-25 06:00] LABS: Bedside Glucose 95 mg/dL (74-106)
[2022-11-25 06:00] LABS: Partial Thromboplast Time 27.2 Seconds (24.1-36.2)
[2022-11-25 06:03] LABS: Internal QC Validated? YES +Cl - CLEAR BKGD; Pregnancy, Serum, hCG Quali. NEGATIVE Negative
[2022-11-25 06:10] LABS: Anion Gap 7 (5-15); BUN 14 mg/dL (7-18); BUN/Creat Ratio 17.8 RATIO (10-20); Chloride 105 mmol/L (98-107); Creatinine, Serum 0.79 mg/dL (0.55-1.02); EST Glomerular Filtration Rate 87 mL/min (>60); Est Glom Filt Rate - Afr Amer 105 mL/min (>60); Estimated Creatinine Clearance 83.38 ml/min; Glucose 106 mg/dL (74-106); Potassium 3.8 mmol/L (3.5-5.1); Sodium Level 138 mmol/L (136-145); Troponin-I HS 3 pg/mL (3.0-54.0)
--- NOTE | 2022-11-25 06:21 | MRI_ITS ---
STUDY: MRI BRAIN WITH AND WITHOUT CONTRAST REASON FOR EXAM: Female, 37 years old. left sided paresthesias -- stroke alert - negative CT/CTA TECHNIQUE: Standardized multiplanar fat and water weighted pulse sequences were obtained. IV CLARISCAN 12ML was administered for the contrast portion of the examination. COMPARISON: Head CT dated November 25, 2022. FINDINGS: Normal size of the ventricles and extra-axial spaces for the patient''s age. Normal white matter tracts of the supratentorial brain. There is no evidence for recent intracranial ischemia or other cause of cytotoxic edema on diffusion weighted imaging (DWI). Normal T2* images of the brain without demonstrated susceptibility artifact. There is no demonstrated hemosiderin stain. There are no demyelinating plagues of the supratentorial brain, brainstem or cerebellum. There are no findings suspicious for multiple sclerosis (MS). No hydrocephalus or midline shift is present. Normal bilateral basal ganglia. Normal thalami. There is no extra-axial fluid accumulation. Normal flow voids within the major intracranial circulation suggesting patency by spin echo criteria. Normal venous enhancement. There is no enhancing intra-axial or extra-axial abnormality. Normal sella turcica, pituitary gland, infundibular stalk, optic chiasm and hypothalamus. 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 Normal midbrain, dari and medulla. Normal cerebellum. Normal basal cisterns. Normal bilateral temporal bones. Normal bilateral internal auditory canals. No demonstrated orbital abnormality, within the constraints of a routine brain study. There is mucoperiosteal inflammatory disease of the paranasal sinuses consistent with mild chronic sinusitis. Normal calvarium and skull base. Normal visualized soft tissue structures. Normal visualized upper cervical spine. MRI/Brain W/WO Contrast IMPRESSION: 1. Negative unenhanced and enhanced MRI of the brain. Electronically Signed: Kam Coto MD at 10:44 EST Reading Location ID and State: 8 / [place] , Service support ,
--- NOTE | 2022-11-25 07:15 | RAD_ITS ---
EXAM: XR CHEST, 1 VIEW CLINICAL INDICATION: Neuro deficit, acute, stroke suspected Neuro deficit, acute, stroke suspected TECHNIQUE: Frontal view of the chest. This report was created using [employer] report generation technology. COMPARISON: CT scan chest 09/11/2021. FINDINGS: LUNGS AND PLEURAL SPACES: Unremarkable. No consolidation or edema. No pneumothorax. No effusion. HEART: Unremarkable. Cardiac silhouette not enlarged. MEDIASTINUM: Central airways and mediastinal contour are unremarkable. BONES/JOINTS: Unremarkable. SOFT TISSUES: Unremarkable. RAD/Chest 1 View IMPRESSION: No radiographic evidence of acute cardiopulmonary disease. Electronically Signed: Bobby Hernandez MD at 7:49 EST ,
[2022-11-25] MEDS: DiphenhydrAMINE 50 MG/ML Syringe 25 MG IV (09:40)
--- NOTE | 2022-11-25 10:13 | NURSING ---
At approximately 0930 PRESTON Cain called down to MRI for gadolinium contrast reaction. Pt had been given 12mL contrast injection and immediately developed hives around chest, hoarse sounding voice and c/o throat feeling funny. Pt was attached to MRI compatible monitor, SpO2 between 96-98% on room air. ED was called, Dr. Hernandez gives verbal order for Benadryl (see MAR). Pt reports being extremely sensitive to medications and requests only half the dose be given. PRESTON Cain gives 12.5mg Benadryl and stays with patient. Pt's hives are less red and pt reports feeling better. Pt agrees to continue MRI study and will squeeze call ball if symptoms feel worse in any way. After MRI scan is complete, PRESTON Cain evaluates patient. Hives are minimal pt reports ease with swallowing. Pt denies need for additional 12.5mg Benadryl. Pt understands her reaction is to MRI Gadolinium contrast and not CT Iodinated Contrast. PRESTON Cain returns pt to ED and gives report.
== END 2022-11-25 12:05 | disposition home or self-care (01) ==
PROVIDERS: Emergency Provider Emergency Medicine; PCP Internal Medicine; Visit Provider Emergency Medicine
DX: R20.2 Paresthesia of skin (principal)
CPT/HCPCS: 70450; 70496; 70498; 70553; 71045; 80048; 82962; 84484; 84703; 85025; 85610; 85730; 93005; 96374; 99285; A9575; Q9967; A4216

== ENCOUNTER → 2023-01-07 | Outpatient (CLI) | payer OTHER, SELFPAY ==
[2023-01-07 15:31] LABS: Hemoglobin A1c 5.5 % (3.8-5.6)
[2023-01-07 16:12] LABS: Thyroid Stim Hormone (TSH) 0.98 uIU/mL (0.358-3.74)
[2023-01-08 07:39] LABS: Vitamin B12 514 pg/mL (211-911)
[2023-01-11 20:21] LABS: Vitamin B1, Thiamine 175.5 nmol/L (66.5-200.0)
== END | disposition home or self-care (01) ==
LOC: MTLAB 11:33
PROVIDERS: PCP Internal Medicine; Referring Provider Psychiatry & Neurology Neurology; Visit Provider Psychiatry & Neurology Neurology
DX: G62.9 Polyneuropathy, unspecified (principal)
CPT/HCPCS: 36415; 82607; 82746; 83036; 84425; 84443